=== PATIENT | male | born 1975 | race Caucasian/White ===

== ENCOUNTER 2025-05-08 22:48 | Inpatient (IN) | payer SELFPAY ==
[2025-05-08] VITALS (10 sets, daily range): BP systolic 140–198; BP diastolic 92–103; PULSE 74–84; RESP 16–20; TEMP 36.1; O2SAT 95–99
--- NOTE | ~2025-05-08 | XR_ITS ---
EXAM/PROCEDURE: XR chest 2V - 05/08/2025 23:11 CDT HISTORY: 50 years old Male with cp, sob TECHNIQUE: Two view(s) of the chest. COMPARISON: None available. FINDINGS: LUNGS/ PLEURA: No focal consolidation. Mild perihilar bronchial wall thickening. HEART/ MEDIASTINUM: Heart appears normal in size. BONES: No acute osseous abnormality. OTHER: Visualized upper abdomen is unremarkable. IMPRESSION: No focal consolidation. Mild perihilar bronchial wall thickening, findings suggestive of respiratory bronchiolitis. Reviewed, dictated and finalized at location N. IMPRESSION: No focal consolidation. Mild perihilar bronchial wall thickening, findings sugg estive of respiratory bronchiolitis.
--- NOTE | 2025-05-08 22:49 | ECG_ITS ---
Test Date: 2025-05-08 22:59:57 Measurements Intervals [place] Rate: 77 P: 12 NH: 168 QRS: -29 QRSD: 89 T: 77 QT: 373 QTc: 423 Interpretive Statements SINUS RHYTHM BORDERLINE LEFT AXIS DEVIATION [QRS AXIS < -20] ST & T-WAVE ABNORMALITY, CONSIDER ANTEROLATERAL ISCHEMIA ABNORMAL ECG No previous ECG available for comparison Electronically Signed On 05-09-2025 08:08:49 CDT by Frank Adhikari M.D.
--- NOTE | 2025-05-08 23:09 | ED_ITS ---
HPI - Chest Pain General Chief Complaint: Chest Pain Stated Complaint: chest pain Time Seen by Provider: 05/08/25 22:50 History of Present Illness HPI narrative: This is a 50-year-old male with no significant past medical history presents the ED for chest pain. Patient states that he was having sex with his about an hour and half ago when he had onset of sternal chest pain that radiated to his right shoulder. The pain lasts about an hour before resolving on its own. He has only had this pain 1 other time which was a couple days ago when he was doing some yd work. He did have some mild shortness of breath during the pain. Denies nausea vomiting, diaphoresis. He has not seen a physician in several years. He is not on any medications. He is a nonsmoker and does not drink alcohol regularly. Related Data Allergies Allergy/AdvReac Type Severity Reaction Status Date / Time No Known Allergies Allergy Verified 05/08/25 22:50 Review of Systems 2 Review of Systems: Gen.: Denies fevers or chills Eyes: Denies eye pain or visual change ENT: Denies congestion Respiratory: As per HPI CV: As per HPI GI: Denies abdominal pain nausea, emesis or diarrhea denies burning, urgency, frequency or hematuria Musculoskeletal: Denies back pain or muscle pain Neuro: Denies numbness, tingling, weakness or focal weakness Skin: Denies rash Except as documented, all other systems reviewed and negative Exam 2 Narrative: APPEARANCE: No acute distress, nontoxic, resting in bed EYES: EOMI HEENT: Normocephalic, atraumatic, OMM RESPIRATORY: No respiratory distress Clear to auscultation bilaterally with no rhonchi wheezing or rales. CARDIOVASCULAR: Regular rate and rhythm without murmurs rubs or gallops. ABDOMINAL: Soft, nontender, nondistended, no rebound or guarding MUSCULOSKELETAl: Moves all extremities. No clubbing, cyanosis or edema. NEURO: Awake and alert. Following commands, speech normal, no focal deficits SKIN:: Warm, dry. No rashes lesions or abrasions PSYCHIATRIC: Normal affect/mood, Course Vital Signs Vital signs: Vital Signs Temperature 97.0 F L 05/08/25 22:51 Pulse Rate 80 05/08/25 22:51 Respiratory Rate 17 05/08/25 22:51 Blood Pressure 198/103 H 05/08/25 22:51 Pulse Oximetry 99 05/08/25 22:51 Oxygen Delivery Room Air 05/08/25 22:51 Temperature 97.0 F L 05/08/25 22:51 Pulse Rate 68 05/09/25 01:15 Respiratory Rate 25 H 05/09/25 01:15 Blood Pressure 140/96 H 05/09/25 01:15 Pulse Oximetry 94 05/09/25 01:15 Oxygen Delivery Room Air 05/08/25 22:51 MDM - Chest Pain MDM Narrative Medical decision making narrative: 50-year-old male that presents to the ED for chest pain. On initial evaluation, patient was in no acute distress, afebrile, hemodynamically stable. Heart and lungs clear. Abdomen soft and nontender. He had a mild leukocytosis at 12.7 but no left shift. CMP was without significant abnormalities. Troponin elevated at 0.676. Patient will be given heparin bolus and drip for an NSTEMI. Patient already received 650 mg of aspirin at home so he was not given additional aspirin. He will require admission for further cardiac evaluation. I discussed the case with hospitalist, Dr. Nicholas recommends metoprolol 25 mg now and will admit the patient. Differential Diagnosis Differential diagnosis: Likely stable angina, unstable angina pectoris, atypical chest pain, st elevation myocardial infarction, costochondritis and chest pain Medical Records Data Attestation: I reviewed the patient's medical records. Lab Data Attestation: I reviewed the patient's lab results. 05/08/25 23:02 05/08/25 23:02 Labs: Lab Results 05/08/25 Range/Units 23:02 WBC 12.7 H (4.5-10.0) K/mm3 RBC 5.85 (4.6-6.20) M/mm3 Hgb 16.8 (14.0-18.0) g/dL Hct 48.4 (42.0-52.0) % MCV 82.7 (80-100) fl MCH 28.7 (26-34) pg MCHC 34.7 (32-36) g/dl RDW 12.9 (11.5-14.5) % Plt Count 270 (150-375) k/mm3 MPV 10.3 (7.4-10.4) fl Immature Gran % (Auto) 0.5 (0-0.5) % Neut % (Auto) 68.1 (45.5-73.1) % Lymph % (Auto) 19.7 (18.3-44.2) % [place] % (Auto) 8.8 H (2.6-8.5) % Eos % (Auto) 2.0 (0-4.4) % Baso % (Auto) 0.9 (0.2-1.2) % Lymph # (Auto) 2.50 (0.9-3.2) K/mm3 [place] # (Auto) 1.1 H (0.1-0.6) K/mm3 Eos # (Auto) 0.3 (0-0.3) K/mm3 Baso # (Auto) 0.1 (0.0-0.1) K/mm3 Abs Immat Gran (auto) 0.06 H (0.00-0.031) K/mm3 Absolute Neuts (auto) 8.6 H (1.3-6.7) K/mm3 Absolute Nucleated RBC 0.000 (0.0-0.012) K/mm3 Nucleated RBC % 0.0 (0.0-0.2) % PT 13.8 (11.1-14.7) Seconds INR 1.1 APTT 27.8 (22.3-36.8) Seconds Sodium 137 (137-145) mmol/L Potassium 3.5 (3.4-5.0) mmol/L Chloride 102 (98-107) mmol/L Carbon Dioxide 25 (22-30) mmol/L Anion Gap 10 (4-12) mmol/L BUN 11 (9-20) mg/dL Creatinine 0.93 (0.7-1.3) mg/dL Estim Creat Clear Calc 133 ml/min Estimated GFR > 60 (59 - ) Glucose 124 H (65-110) mg/dL Calcium 9.0 (8.4-10.2) mg/dL Total Bilirubin 0.5 (0.2-1.3) mg/dL AST 40 (17-59) U/L ALT 36 (6-50) U/L Alkaline Phosphatase 100 (38-126) U/L Troponin I 0.676 H* (0.000-0.034) ng/mL Total Protein 8.0 (6.3-8.2) g/dL Albumin 4.6 (3.5-5.1) g/dL Lipase 163 (23-300) U/L Imaging Data Attestation: I personally reviewed and interpreted this imaging study as follows: My impression: Chest x-ray: No focal consolidations. No fractures. Appropriate heart size. No effusions. ECG Data EKG #1: Attestation: I personally reviewed and interpreted this ECG as follows: ECG completion date: 05/08/25 ECG completion time: 22:59 Prior ECG tracings: not available for review Interpretation: Normal sinus rhythm rate of 77, borderline left axis deviation, nonspecific ST changes, no T-wave changes Discharge Plan Discharge Clinical Impression: Acute non-ST elevation myocardial infarction (NSTEMI) Hypertension Qualifiers: Hypertension type: unspecified Qualified Code(s): I10 - Essential (primary) hypertension Obese Qualifiers: Obesity type: unspecified obesity type Obesity classification: adult class 3 (BMI >= 40) Serious obesity comorbidity presence: unspecified whether serious comorbidity present Body mass index: BMI 40.0-44.9 Qualified Code(s): E66.813 - Obesity, class 3; Z68.41 - Body mass index [BMI] 40.0-44.9, adult Patient Disposition: Still a Patient Condition: Stable Patient Language: Cambodian Follow-up/Referrals: PHYSICIAN,SUPERVISOR DECORATING [Primary Care Provider, Internal Medicine]
[2025-05-08 23:10] LABS: Hematocrit 48.4 % (42.0-52.0); Hemoglobin 16.8 g/dL (14.0-18.0); Immature Granulocyte Percent A 0.5 % (0-0.5); Lymphocytes Absolute Auto 2.50 K/mm3 (0.9-3.2); Mean Corpuscular HGB Conc 34.7 g/dl (32-36); Mean Corpuscular Hemoglobin 28.7 pg (26-34); Mean Corpuscular Volume 82.7 fl (80-100); Nucleated Red Blood Cells Absolute Auto 0.000 K/mm3 (0.0-0.012); Nucleated Red Blood Cells Perc 0.0 % (0.0-0.2); Platelet Count Result 270 k/mm3 (150-375); Red Blood Count 5.85 M/mm3 (4.6-6.20); White Blood Count 12.7 K/mm3 (4.5-10.0)
[2025-05-08 23:29] LABS: INR 1.1; Prothrombin Time 13.8 Seconds (11.1-14.7)
[2025-05-08 23:30] LABS: Partial Thromboplastin Time 27.8 Seconds (22.3-36.8)
[2025-05-08 23:38] LABS: Alanine Aminotransferase 36 U/L (6-50); Albumin Level 4.6 g/dL (3.5-5.1); Alkaline Phosphatase 100 U/L (38-126); Anion Gap 10 mmol/L (4-12); Aspartate Amino Transferase 40 U/L (17-59); Bilirubin,Total 0.5 mg/dL (0.2-1.3); Blood Urea Nitrogen 11 mg/dL (9-20); Calcium 9.0 mg/dL (8.4-10.2); Carbon Dioxide 25 mmol/L (22-30); Chloride 102 mmol/L (98-107); Estimated CRCL calculation 133 ml/min; Estimated Glomerular Filt Rate > 60; Glucose 124 mg/dL (65-110); Lipase 163 U/L (23-300); Potassium 3.5 mmol/L (3.4-5.0); Sodium 137 mmol/L (137-145); Total Protein 8.0 g/dL (6.3-8.2); Troponin I 0.676 ng/mL (0.000-0.034)
[2025-05-09] VITALS (49 sets, daily range): BP systolic 129–177; BP diastolic 77–101; PULSE 58–81; RESP 14–25; TEMP 36.4; O2SAT 94–100; BMI 42.8
--- NOTE | 2025-05-09 | ECHO_ITS ---
Patient Info Name: Anjum Gregory Age: 50 years : 1975 Gender: Male Ht: 75 in Wt: 341 lbs BSA: 2.93 m2 HR: 62 bpm BP: 153 / 79 mmHg Heart Rhythm: Sinus Rhythm Technical Quality: Good Exam Date: 05/09/2025 1:35 PM Patient Status: I Admit Date: 05/09/2025 Exam Type: CA echo doppler color flow Complete two-dimensional, color flow and Doppler transthoracic echocardiogram is performed. Staff Referring Physician: Yimi Ashford Mobile Phone Salesperson: Alvarez Yusuf III Attending Provider: Shanell Nicholas DO Summary 1. Complete two-dimensional, color flow and Doppler transthoracic echocardiogram is performed. 2. Left ventricular chamber dimension is normal. 3. Left ventricular systolic function is normal, estimated at 65-70. 4. There is mildly increased left ventricular wall thickness. 5. The left ventricular diastolic function is grade I diastolic dysfunction. 6. There is mild aortic valve calcification. 7. There is mild mitral valve regurgitation. 8. There is mild tricuspid valve regurgitation. 9. The prox ascending aorta size is mildly dilated. Left Ventricle Left ventricular chamber dimension is normal. Left ventricular systolic function is normal, estimated at 65-70. There is mildly increased left ventricular wall thickness. The left ventricular diastolic function is grade I diastolic dysfunction. Right Ventricle Right ventricular chamber dimension is normal. Right ventricular systolic function is normal. Left Atria Left atrial chamber dimension is normal. Right Atria Right atrial chamber dimension is normal. Atrial Septum Intact interatrial septum visualized by color flow imaging. Aortic Valve The aortic valve is trileaflet. There is no aortic valve stenosis. There is trace aortic valve regurgitation. There is mild aortic valve calcification. Pulmonic Valve The pulmonic valve is normal. There is no pulmonic valve stenosis. There is trace pulmonic regurgitation. Mitral Valve The mitral valve has normal leaflets. There is no mitral valve stenosis. There is mild mitral valve regurgitation. Tricuspid Valve The tricuspid valve leaflets are normal. There is no significant tricuspid valve stenosis. There is mild tricuspid valve regurgitation. No pulmonary hypertension, estimated pulmonary arterial systolic pressure is 30 mmHg. Pericardium/Pleural The pericardium appears normal. There is no pericardial effusion. Inferior Vena Cava Normal inferior vena cava with >50% collapse upon inspiration consistent with normal right atrial pressure, 5 mmHg. Aorta The aortic root size at the sinus of Valsalva is normal. The prox ascending aorta size is mildly dilated. Left Ventricular Outflow Tract Name Value Normal LVOT 2D LVOT Diameter 2.4 cm LVOT Doppler LVOT Peak Velocity 133 cm/s LVOT Peak Gradient 7 mmHg LVOT Mean Gradient 4 mmHg LVOT VTI 28 cm LVOT VTI/AV VTI Ratio 0.9 LVOT Stroke Volume 120 ml LVOT CO 23.9 l/min LVOT CI 8.2 l/min/m2 Pulmonic Valve Name Value Normal PV Doppler PV Peak Velocity 131 cm/s PV Peak Gradient 7 mmHg PV Mean Gradient 3 mmHg Mitral Valve Name Value Normal MV Doppler MV Peak Gradient 5 mmHg MV Mean Gradient 2 mmHg MV Area (Cont Eq VTI) 3.8 cm2 MV Diastolic Function MV E Peak Velocity 89 cm/s MV A Peak Velocity 110 cm/s MV E/A 0.8 MV Decel Time (PW) 265 ms MV Annular TDI MV E/e' (Septal) 12.3 MV E/e' (Lateral) 8.8 MV E/e' (Average) 10.6 Tricuspid Valve Name Value Normal Estimated PAP/RSVP RA Pressure 5 mmHg <=5 PA Systolic Pressure 30 mmHg <36 TV Annular TDI TV Lateral Anjelica s' Velocity 24.4 cm/s >=9.5 Aortic Valve Name Value Normal AV Doppler AV Peak Velocity 180 cm/s AV Peak Gradient 13 mmHg AV Mean Gradient 6 mmHg AV VTI 30 cm AV Area (Cont Eq VTI) 4.1 cm2 >=3.0 AV Area (Cont Eq Jeffery) 3.2 cm2 AV DI (Jeffery) 0.74 AV Regurgitation 2D LVOT Area 4.4 cm2 Ventricles Name Value Normal LV Dimensions 2D/MM IVS Diastolic Thickness (2D) 1.4 cm 0.6-1.0 LVID Diastole (2D) 5.1 cm 4.2-5.8 LVIW Diastolic Thickness (2D) 1.1 cm 0.6-1.0 LVID Systole (2D) 3.6 cm 2.5-4.0 LVOT Diameter 2.4 cm LV Mass (2D Cubed) 254.91 g 88.00-224.00 LV Mass Index (2D Cubed) 87 g/m2 49-115 Relative Wall Thickness (2D) 0.45 <=0.42 LV Fractional Shortening/Ejection Fraction 2D/MM LV Fractional Shortening (2D) 29 % 25-43 LV EF (2D Teichholz) 55 % LV Diastolic Volume (4C MOD) 135 ml LV EF (4C MOD) 59 % LV Diastolic Length (4C) 9.3 cm LV Systolic Length (4C) 8.1 cm LV Stroke Volume (4C MOD) 80 ml Atria Name Value Normal LA Dimensions LA Volume (4C A-L) 63 ml LA Volume (BP A-L) 67 ml RA Dimensions RA Systolic Major Brewster Length (4C) 5.9 cm 2.1-2.7 RA Area (4C) 19.5 cm2 <=18.0 Report Signatures
[2025-05-09] MEDS: HEPARIN SOD/D5W 100 UNITS/ML 25,000 UNITS/250 ML BAG 10 UNITS IV CONT (00:18)
[2025-05-09] MEDS: METOPROLOL TARTRATE 25 MG TABLET PO (01:06)
--- NOTE | 2025-05-09 02:42 | ECG_ITS ---
Test Date: 2025-05-09 02:47:22 Measurements Intervals [place] Rate: 56 P: 7 [place]: 164 QRS: -15 QRSD: 85 T: 71 QT: 430 QTc: 416 Interpretive Statements SINUS BRADYCARDIA NONSPECIFIC T-WAVE ABNORMALITY ABNORMAL ECG Compared to ECG 05/08/2025 22:59:57 Sinus rhythm no longer present Possible ischemia no longer present T-wave abnormality still present Electronically Signed On 05-09-2025 08:09:09 CDT by Frank Adhikari M.D.
[2025-05-09 03:14] LABS: Troponin I 0.972 ng/mL (0.000-0.034)
--- NOTE | 2025-05-09 03:39 | ADMGEN ---
This patient, Anjum Gregory, was admitted to IMU Room 202-01. Patient/family oriented to hospital policies and general routines including ID bracelet, bed and alarms, visiting hours, pain management, procedures, bathroom and other care routines, personal items, smoking policy, room service/diet, and visiting hours. Information on how to activate the Rapid Response Team has been discussed. Patient/Family are encouraged to report perceived risks to care and to ask questions if they do not understand what they are told or what they should do.
[2025-05-09] MEDS: NITROGLYCERIN OINTMENT 1 INCH DOSE TRANSDERM (03:40)
--- NOTE | 2025-05-09 03:52 | P.HP_ITS ---
H&P: HPI History of Present Illness Date/Time: 05/09/25 03:52 Chief Complaint: Chest pain Narrative: Will 50-year-old male with a medical history of obesity who has not seen a physician in 12 years who presented to the ER via private vehicle with chest pain. Patient reported that he started having chest pressure in the center of her chest that initially was nonradiating on the . The pain occurred again later in the day. The pain felt as if something was sitting on his chest and was initially moderate and lasted about 5 minutes each time. It recurred later in the same day when he started moving about again. Her he did not have the pain again in till around 930 on the when he and his for having intercourse. The pain was much worse this time 10/10 intensity and then started radiating down his right arm. He took 2 tablet the 325 aspirin at home. It was accompanied by some mild shortness of breath. It was so severe and lasted about 1.5 hours the weight decided come to the ER. He denied any associated lightheadedness, palpitations. On arrival to the ER patient's blood pressures were elevated to 198/103. However the improved to 150 4/92 without intervention. He denies a prior known history of hypertension. He used to get a electronic health screening through his insurance year yearly for about 8 years with his last screening about 2021. At those times his blood pressure and cholesterol reportedly normal. He does not check his blood pressures at home. He has not had any labs obtained since that time. His does report the patient snores quite loudly and she suspects he has obstructive sleep apnea but patient refuses to consider a sleep study. He reports that he is still having brief episodes of chest pressure since he arrived to the IMU but the episodes only last for minutes or so before resolving and her mild compared to his prior pain. He is a lifelong nonsmoker. A does not have any family history of premature coronary artery disease. His father had a pacemaker placed recently but his father's 83 years old. Review of Systems 2 Review of Systems: 12 systems were reviewed with pertinent positives and negatives per HPI. Except as documented in the HPI, all other systems were reviewed and are negative. Chronic swelling of the right lower extremity for many years in the same leg that he has chronic psoriasis plaque [facility] Past Medical History Medical History (Updated 05/09/25 @ 04:36 by Shanell Nicholas DO) Psoriasis Obesity, Class III, BMI 40-49.9 (morbid obesity) Surgical History Surgical History (Updated 05/09/25 @ 04:29 by Shanell Nicholas DO) History of appendectomy Family History Family History (Updated 05/09/25 @ 04:30 by Shanell Nicholas DO) Father Status post placement of cardiac pacemaker, Onset Age: 85 Social History Social History (Updated 05/09/25 @ 04:32 by Shanell Nicholas DO) Social History: The patient lives at home with his of 25 years. He has 1 child from a prior marriage is 31 years old. Their mutual children are ages 25, 18, 13, 12 and 9. 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 He is a lifelong nonsmoker and does not drink. He denies illicit substance use. Code status: Full code Surrogate decision maker: Asya () Smoking status: Never smoker Alcohol intake: former Substance use: never Lack of Transportation: No Lack of Food: Never True Current Housing: I Have Housing Concerned About Future Housing: No Difficulty Paying Gas/Electric Bills: No Difficulty Paying for Meds: No Currently Unemployed: No Education: Bachelor's Degree Difficulty w/ Childcare or Family Care: No Spiritual care concerns: No Meds Home Medications and Allergies Allergies Allergy/AdvReac Type Severity Reaction Status Date / Time No Known Allergies Allergy Verified 05/08/25 22:50 Vital Signs Vital Signs - 24 hr 05/08/25 22:51 05/08/25 22:59 05/08/25 23:00 Temperature 97.0 F L Pulse Rate 80 80 Respiratory Rate 17 Blood Pressure 198/103 H Pulse Oximetry 99 97 Oxygen Delivery Room Air 05/08/25 23:00 05/08/25 23:07 05/08/25 23:19 Temperature Pulse Rate 76 Respiratory Rate 19 Blood Pressure 154/92 H Pulse Oximetry 96 95 96 Oxygen Delivery 05/08/25 23:26 05/08/25 23:30 05/08/25 23:31 Temperature Pulse Rate 74 84 78 Respiratory Rate 20 16 19 Blood Pressure 157/99 H 140/102 H Pulse Oximetry 95 95 98 Oxygen Delivery 05/08/25 23:44 05/08/25 23:45 05/09/25 00:00 Temperature Pulse Rate 75 75 70 Respiratory Rate 17 20 15 Blood Pressure 144/103 H Pulse Oximetry 95 96 97 Oxygen Delivery 05/09/25 00:01 05/09/25 00:15 05/09/25 00:30 Temperature Pulse Rate 74 81 72 Respiratory Rate 22 H 17 18 Blood Pressure 147/90 H Pulse Oximetry 95 96 94 Oxygen Delivery 05/09/25 00:31 05/09/25 00:45 05/09/25 01:00 Temperature Pulse Rate 71 74 71 Respiratory Rate 18 16 18 Blood Pressure 150/96 H Pulse Oximetry 95 97 96 Oxygen Delivery 05/09/25 01:01 05/09/25 01:02 05/09/25 01:06 Temperature Pulse Rate 71 69 69 Respiratory Rate 25 H 18 Blood Pressure 140/96 H Pulse Oximetry 96 94 Oxygen Delivery 05/09/25 01:15 05/09/25 01:30 05/09/25 01:31 Temperature Pulse Rate 68 63 68 Respiratory Rate 25 H 14 16 Blood Pressure 140/96 H 143/95 H Pulse Oximetry 94 96 96 Oxygen Delivery 05/09/25 01:45 05/09/25 02:00 05/09/25 02:01 Temperature Pulse Rate 63 60 62 Respiratory Rate 15 23 H Blood Pressure 140/90 Pulse Oximetry 99 96 95 Oxygen Delivery 05/09/25 02:15 05/09/25 02:30 05/09/25 02:31 Temperature Pulse Rate 60 58 L 59 L Respiratory Rate 20 18 20 Blood Pressure 132/91 H Pulse Oximetry 94 95 96 Oxygen Delivery 05/09/25 02:32 05/09/25 02:37 05/09/25 03:39 Temperature 97.5 F L Pulse Rate 65 59 L 60 Respiratory Rate 23 H 16 16 Blood Pressure 132/91 H 129/83 Pulse Oximetry 99 98 97 Oxygen Delivery Exam 2 Narrative: Weight 155.4 kg BMI 42.8 Const: Other: Morbidly obese, no acute distress, appears stated age HENMT: Other: Mucous membranes are tacky, no oral pharyngeal erythema, crowded posterior oropharynx Eyes: Other: Pupils are equal and reactive, no scleral icterus Neck: Other: No JVD, no lymphadenopathy, large neck circumference Resp: Other: Clear to auscultation bilaterally, no increased work of breathing Cardio: Other: Regular rate, regular rhythm, 2+ bilateral radial pedal pulses GI: Other: Soft, obese, nontender, normoactive bowel sounds Skin: Other: Patient has chronic scarring and areas of thickened purple plaques posterior right ankle (psoriasis) otherwise No jaundice, no pallor Neuro: Other: Alert oriented x4, speech is clear, no facial asymmetry Extrem: Other: No clubbing, no cyanosis, nonpitting edema to the right lower extremity (chronic and ongoing for many years) Psych: Other: Appropriate mood and affect, pleasant and cooperative, judgment insight intact H&P: Results Labs Labs: Laboratory Tests 05/08/25 23:02 05/08/25 23:02 05/08/25 05/09/25 23:02 02:43 WBC 12.7 H RBC 5.85 Hgb 16.8 Hct 48.4 MCV 82.7 MCH 28.7 MCHC 34.7 RDW 12.9 Plt Count 270 MPV 10.3 Immature Gran % (Auto) 0.5 Neut % (Auto) 68.1 Lymph % (Auto) 19.7 [place] % (Auto) 8.8 H Eos % (Auto) 2.0 Baso % (Auto) 0.9 Lymph # (Auto) 2.50 [place] # (Auto) 1.1 H Eos # (Auto) 0.3 Baso # (Auto) 0.1 Abs Immat Gran (auto) 0.06 H Absolute Neuts (auto) 8.6 H Absolute Nucleated RBC 0.000 Nucleated RBC % 0.0 PT 13.8 INR 1.1 APTT 27.8 Sodium 137 Potassium 3.5 Chloride 102 Carbon Dioxide 25 Anion Gap 10 BUN 11 Creatinine 0.93 Estim Creat Clear Calc 133 Estimated GFR > 60 Glucose 124 H Calcium 9.0 Total Bilirubin 0.5 AST 40 ALT 36 Alkaline Phosphatase 100 Troponin I 0.676 H* 0.972 H* D Total Protein 8.0 Albumin 4.6 Lipase 163 Chest x-ray PA and lateral: Personally reviewed interpreted demonstrated no acute cardiopulmonary process EKGs reviewed and interpreted: 1. Sinus rhythm rate [address] T- wave abnormality in multiple leads. With minimal elevation in AVR and minimal depression with T-wave abnormality in lead 1 to and lateral leads. 2. EKG sinus bradycardia rate 56 with improved appearance cardiology interpretation pending Assessment and Plan Assessment and plan (1) Acute non-ST elevation myocardial infarction (NSTEMI): Code(s): I21.4 - Non-ST elevation (NSTEMI) myocardial infarction Status: Acute (2) Hypertension: Qualifiers: Hypertension type: unspecified Qualified Code(s): I10 - Essential (primary) hypertension Code(s): I10 - Essential (primary) hypertension Status: Acute (3) Obesity, Class III, BMI 40-49.9 (morbid obesity): Code(s): E66.813 - Obesity, class 3 Status: Acute Plan Patient presents with chest pain and found to have non STEMI. Patient is on heparin drip per protocol. He received aspirin at home. Will start patient on 81 mg aspirin daily. Will check fasting lipid panel with next set of troponins. Troponins are still trending upward. Patient reports continued intermittent pain but EKG stable. Will consult Cardiology. NPO for possible cardiac catheterization. Patient's blood pressures have improved significantly. Will start patient on 25 mg metoprolol succinate daily. Patient does have class 3 obesity and his reports significant snoring and suspected obstructive sleep apnea. Will order ApneaLink. MEDICAL DECISION MAKING NARRATIVE -Spoke with the ED provider in detail regarding patient's evaluation, workup and management -Patient seen and examined at bedside -Collaborated with patient's nurse at the bedside in detail and addressed all concerns -Labs, electrolytes, radiology, investigations and test results personally reviewed and interpreted unless otherwise specified -ED/Consult/Nursing/Ancilliary notes on the chart reviewed and appreciated -Spoke with patient and his at bedside and diagnosis and plan of care was discussed. All questions answered. The patient gave consent to discuss his medical care with his at bedside. Quality VTE Prophylaxis VTE prophylaxis: pharmacologic ordered (Heparin drip per protocol) Hospitalist MIPS Advance Care Plan I have confirmed that the patient's Advanced Care Plan is present, code status is documented, or surrogate decision maker is listed in patient medical record.: Yes Medication Reconciliation I have utilized all available resources to obtain, update and review the patients current medications (includes all prescriptions, OTC, herbals, cannabis, and nutritional supplements).: Yes
[2025-05-09 06:44] LABS: Hematocrit 44.2 % (42.0-52.0); Hemoglobin 15.2 g/dL (14.0-18.0); Immature Granulocyte Percent A 0.5 % (0-0.5); Lymphocytes Absolute Auto 2.11 K/mm3 (0.9-3.2); Mean Corpuscular HGB Conc 34.4 g/dl (32-36); Mean Corpuscular Hemoglobin 29.2 pg (26-34); Mean Corpuscular Volume 85.0 fl (80-100); Nucleated Red Blood Cells Absolute Auto 0.000 K/mm3 (0.0-0.012); Nucleated Red Blood Cells Perc 0.0 % (0.0-0.2); Platelet Count Result 207 k/mm3 (150-375); Red Blood Count 5.20 M/mm3 (4.6-6.20); White Blood Count 8.2 K/mm3 (4.5-10.0)
[2025-05-09 06:52] LABS: Partial Thromboplastin Time 27.2 Seconds (22.3-36.8)
[2025-05-09 06:54] LABS: Cholesterol 192 mg/dL (0-200); HDL Direct 41 mg/dL; Triglycerides 188 mg/dL (<150)
[2025-05-09 07:08] LABS: Troponin I 1.110 ng/mL (0.000-0.034)
--- NOTE | 2025-05-09 08:14 | PM.CNCAR ---
Assessment and Plan Assessment and plan (1) Acute non-ST elevation myocardial infarction (NSTEMI): Code(s): I21.4 - Non-ST elevation (NSTEMI) myocardial infarction Status: Acute (2) Hypertensive urgency: Code(s): I16.0 - Hypertensive urgency Status: Acute Plan Diagnosis: NSTEMI Sinus bradycardia-asymptomatic Hypertensive urgency Obesity Plan: Troponin is up trending and patient continues to have off and on chest pain. Recommend cardiac catheterization to further evaluate coronaries and possible percutaneous coronary intervention. Risks and benefits discussed with patient and he is willing to proceed. Continue to keep NPO Continue heparin drip Continue Aspirin 81 mg daily Add Atorvastatin 40 mg daily Not adding beta-jonathan given heart rate is in the 50s to 60s at baseline Sublingual nitro p.r.n. for chest pain Trend troponin to peak EKG p.r.n. for chest pain TTE Good risk factor control including blood pressure with target less than 120/80, lipids History of Present Illness History of Present Illness Consult date/time: 05/09/25 08:14 Reason For Visit: NSTEMI Narrative: 50-year-old male with no significant past medical history presents with chief complaints of chest pain that started on Thursday. Patient reports 2 episodes of pressure-like left-sided chest pain that started after he moved some boxes up the stairs on Thursday. Pain radiated to his right shoulder and arm. Each episode lasted about 30 minutes and resolved with rest without any intervention. He then had recurrence of similar left-sided chest pain yesterday night at about 9:00 p.m with radiation to right arm. It was of intensity 11/10. Pain lasted for 1-1/2 are sent patient decided to present to the ER. In the ER pain decreased to an intensity of 3/10 with aspirin. However it did not completely resolve until later. He has not had recurrence of chest pain since then. Chest pain was associated with some shortness of breath. Patient has no personal or family history of premature CAD. He does not smoke or drink alcohol. He has not had similar symptoms in the past. No diaphoresis, palpitations, dizziness, lightheadedness, presyncope, syncope, recent weight gain, leg swelling. Blood pressure was noted to be elevated with SBP in the 190s at the time of presentation. Troponin was noted to be elevated and is rising. First EKG showed sinus rhythm with ST depressions in anterolateral leads suggestive of ischemia and ST elevation in AVR. Repeat EKG showed sinus bradycardia with nonspecific T-wave change. Workup: Hemoglobin: 15.2 Creatinine: 0.93 Troponin: 0.676, 0.972, 1.110 EKG: Sinus rhythm, anterolateral ST depression suggestive of ischemia, ST elevation in AVR Repeat EKG: Sinus bradycardia, nonspecific T-wave changes Chest x-ray: IMPRESSION: No focal consolidation. Mild perihilar bronchial wall thickening, findings suggestive of respiratory bronchiolitis. Review of Systems Review of Systems: Complete review of systems was performed and negative other than those mentioned in HPI. [facility] Past Medical History Medical History (Updated 05/09/25 @ 08:18 by Wendy Yeager MD) Psoriasis Obesity, Class III, BMI 40-49.9 (morbid obesity) Surgical History Surgical History (Updated 05/09/25 @ 04:29 by Shanell Nicholas DO) History of appendectomy Family History Family History (Updated 05/09/25 @ 04:30 by Shanell Nicholas DO) Father Status post placement of cardiac pacemaker, Onset Age: 85 Social History Social History (Updated 05/09/25 @ 04:32 by Shanell Nicholas DO) Social History: The patient lives at home with his of 25 years. He has 1 child from a prior marriage is 31 years old. Their mutual children are ages 25, 18, 13, 12 and 9. 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 He is a lifelong nonsmoker and does not drink. He denies illicit substance use. Code status: Full code Surrogate decision maker: Asya () Smoking status: Never smoker Alcohol intake: former Substance use: never Lack of Transportation: No Lack of Food: Never True Current Housing: I Have Housing Concerned About Future Housing: No Difficulty Paying Gas/Electric Bills: No Difficulty Paying for Meds: No Currently Unemployed: No Education: Bachelor's Degree Difficulty w/ Childcare or Family Care: No Spiritual care concerns: No Meds Home Medications and Allergies Home Medications ?Medication ?Instructions ?Recorded ?Confirmed ?Type No Home Medications 05/09/25 05/09/25 History Allergies Allergy/AdvReac Type Severity Reaction Status Date / Time No Known Allergies Allergy Verified 05/08/25 22:50 Vital Signs Vital Signs - 24 hr 05/08/25 22:51 05/08/25 22:59 05/08/25 23:00 Temperature 36.1 C L Pulse Rate 80 80 Respiratory Rate 17 Blood Pressure 198/103 H Pulse Oximetry 99 97 Oxygen Delivery Room Air 05/08/25 23:00 05/08/25 23:07 05/08/25 23:19 Temperature Pulse Rate 76 Respiratory Rate 19 Blood Pressure 154/92 H Pulse Oximetry 96 95 96 Oxygen Delivery 05/08/25 23:26 05/08/25 23:30 05/08/25 23:31 Temperature Pulse Rate 74 84 78 Respiratory Rate 20 16 19 Blood Pressure 157/99 H 140/102 H Pulse Oximetry 95 95 98 Oxygen Delivery 05/08/25 23:44 05/08/25 23:45 05/09/25 00:00 Temperature Pulse Rate 75 75 70 Respiratory Rate 17 20 15 Blood Pressure 144/103 H Pulse Oximetry 95 96 97 Oxygen Delivery 05/09/25 00:01 05/09/25 00:15 05/09/25 00:30 Temperature Pulse Rate 74 81 72 Respiratory Rate 22 H 17 18 Blood Pressure 147/90 H Pulse Oximetry 95 96 94 Oxygen Delivery 05/09/25 00:31 05/09/25 00:45 05/09/25 01:00 Temperature Pulse Rate 71 74 71 Respiratory Rate 18 16 18 Blood Pressure 150/96 H Pulse Oximetry 95 97 96 Oxygen Delivery 05/09/25 01:01 05/09/25 01:02 05/09/25 01:06 Temperature Pulse Rate 71 69 69 Respiratory Rate 25 H 18 Blood Pressure 140/96 H Pulse Oximetry 96 94 Oxygen Delivery 05/09/25 01:15 05/09/25 01:30 05/09/25 01:31 Temperature Pulse Rate 68 63 68 Respiratory Rate 25 H 14 16 Blood Pressure 140/96 H 143/95 H Pulse Oximetry 94 96 96 Oxygen Delivery 05/09/25 01:45 05/09/25 02:00 05/09/25 02:01 Temperature Pulse Rate 63 60 62 Respiratory Rate 15 23 H Blood Pressure 140/90 Pulse Oximetry 99 96 95 Oxygen Delivery 05/09/25 02:15 05/09/25 02:30 05/09/25 02:31 Temperature Pulse Rate 60 58 L 59 L Respiratory Rate 20 18 20 Blood Pressure 132/91 H Pulse Oximetry 94 95 96 Oxygen Delivery 05/09/25 02:32 05/09/25 02:37 05/09/25 03:39 Temperature 36.4 C L Pulse Rate 65 59 L 60 Respiratory Rate 23 H 16 16 Blood Pressure 132/91 H 129/83 Pulse Oximetry 99 98 97 Oxygen Delivery 05/09/25 04:00 05/09/25 04:00 05/09/25 05:51 Temperature Pulse Rate 58 L 60 60 Respiratory Rate 16 Blood Pressure Pulse Oximetry 97 Oxygen Delivery Room Air 05/09/25 07:43 Temperature 36.4 C L Pulse Rate 62 Respiratory Rate 20 Blood Pressure 153/79 H Pulse Oximetry 97 Oxygen Delivery Exam Narrative: General: Alert oriented x3, no acute distress Neck: Supple, no JVD Chest: Bilaterally clear to auscultation, no rales or rhonchi Cardiac: S1, S2 +, regular rate, regular rhythm, no murmurs or rubs Extremities: No pedal edema, no skin rash Neurologic: Alert and oriented x3, no focal neurological deficits Results Labs and Meds 05/09/25 06:36 05/08/25 23:02 Lab results: Cardiac Enzymes 05/08/25 05/09/25 05/09/25 Range/Units 23:02 02:43 06:36 AST 40 (17-59) U/L Troponin I 0.676 H* 0.972 H* D Cancelled (0.000-0.034) ng/mL 05/09/25 Range/Units 06:36 AST (17-59) U/L Troponin I 1.110 H* (0.000-0.034) ng/mL Coagulation 05/08/25 05/09/25 Range/Units 23:02 06:36 PT 13.8 (11.1-14.7) Seconds APTT 27.8 27.2 (22.3-36.8) Seconds Lipids 05/09/25 Range/Units 06:36 Triglycerides 188 H (<150) mg/dL Cholesterol 192 (0-200) mg/dL CBC 05/08/25 05/09/25 Range/Units 23:02 06:36 WBC 12.7 H 8.2 (4.5-10.0) K/mm3 RBC 5.85 5.20 (4.6-6.20) M/mm3 Hgb 16.8 15.2 (14.0-18.0) g/dL Hct 48.4 44.2 (42.0-52.0) % Plt Count 270 207 (150-375) k/mm3 Lymph # (Auto) 2.50 2.11 (0.9-3.2) K/mm3 [place] # (Auto) 1.1 H 0.7 H (0.1-0.6) K/mm3 Eos # (Auto) 0.3 0.2 (0-0.3) K/mm3 Baso # (Auto) 0.1 0.1 (0.0-0.1) K/mm3 Comprehensive Metabolic Panel 05/08/25 Range/Units 23:02 Sodium 137 (137-145) mmol/L Potassium 3.5 (3.4-5.0) mmol/L Chloride 102 (98-107) mmol/L Carbon Dioxide 25 (22-30) mmol/L BUN 11 (9-20) mg/dL Creatinine 0.93 (0.7-1.3) mg/dL Glucose 124 H (65-110) mg/dL Calcium 9.0 (8.4-10.2) mg/dL AST 40 (17-59) U/L ALT 36 (6-50) U/L Alkaline Phosphatase 100 (38-126) U/L Total Protein 8.0 (6.3-8.2) g/dL Albumin 4.6 (3.5-5.1) g/dL Intake and Output 05/08/25 05/09/25 05/09/25 23:59 07:59 15:59 Intake Total 73.7 Balance 73.7 Intake: IV 73.7 Heparin Sod/D5w 100 Units/ml 25 73.7 ,000 units In 250 ml @ 1,000 UNITS/HR 10 mls/hr IV CONT . Q24H [facility] Rx#:[id number] Other: # Unmeasured Voids 1 Patient Weight 05/09/25 23:59 Weight 154.7 kg
--- NOTE | 2025-05-09 08:43 | P.SEDATION_ITS ---
Moderate Sedation Note-Pt Data Patient Data Allergies Allergy/AdvReac Type Severity Reaction Status Date / Time No Known Allergies Allergy Verified 05/08/25 22:50 Home Medications ?Medication ?Instructions ?Recorded ?Confirmed ?Type No Home Medications 05/09/25 05/09/25 H istory Current Medications: Active Medications Aspirin (Aspirin 81 Mg Enteric Tablet) 81 mg PO QAM [facility] Atorvastatin Calcium (Atorvastatin 40 Mg Tablet) 40 mg PO DAILY [facility] Heparin Sodium (Porcine) (Heparin Sodium 5,000 Units/Ml Vial) 4,000 units IV PUSH PRN PRN PRN Reason: aPTT less than 55 seconds Last Admin: 05/09/25 07:41 Dose: 4,000 units Heparin Sodium (Porcine) (Heparin Sodium 5,000 Units/Ml Vial) 4,000 units IV PUSH PRN PRN PRN Reason: aPTT 55 - 70 seconds Heparin Sodium/Dextrose (Heparin Sodium/D5w 100 Units/Ml) 25,000 units in 250 mls @ 15 mls/hr IV CONT .[id number] [facility]; Protocol Last Titration: 05/09/25 07:40 Dose: 1,500 units/hr, 15 mls/hr Nitroglycerin (Nitroglycerin Sl 0.4 Mg Tablet) 0.4 mg SUBLINGUAL Q5MIN PRN PRN Reason: Chest Pain Nitroglycerin (Nitroglycerin Ointment 1 Inch Dose) 1 inch TRANSDERM Q6HR [facility]ERSON Last Admin: 05/09/25 03:40 Dose: 1 inch Perflutren Lipid Microsphere (Perflutren Lipid Microspheres 1.5 Ml Vial Diluted To 10 Ml Total Volume) 0 ml IV PUSH ONCE PRN; Protocol PRN Reason: adequate visualization Stop: 05/12/25 08:42 Sedation/Anesthesia: No previous sedation/anesthesia problems (including family history). [facility] Past Medical History Medical History (Updated 05/09/25 @ 08:18 by Wendy Yeager MD) Psoriasis Obesity, Class III, BMI 40-49.9 (morbid obesity) Surgical History Surgical History (Updated 05/09/25 @ 04:29 by Shanell Nicholas DO) History of appendectomy Family History Family History (Updated 05/09/25 @ 04:30 by Shanell Nicholas DO) Father Status post placement of cardiac pacemaker, Onset Age: 85 Social History Social History (Updated 05/09/25 @ 04:32 by BENNY Monae Social History: The patient lives at home with his of 25 years. He has 1 child from a prior marriage is 31 years old. Their mutual children are ages 25, 18, 13, 12 and 9. 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 He is a lifelong nonsmoker and does not drink. He denies illicit substance use. Code status: Full code Surrogate decision maker: Asya () Smoking status: Never smoker Alcohol intake: former Substance use: never Lack of Transportation: No Lack of Food: Never True Current Housing: I Have Housing Concerned About Future Housing: No Difficulty Paying Gas/Electric Bills: No Difficulty Paying for Meds: No Currently Unemployed: No Education: Bachelor's Degree Difficulty w/ Childcare or Family Care: No Spiritual care concerns: No Mod Sed Physical Exam Physical Exam Pre Procedural Exam: Normal: Lungs, Heart Size, Heart Rate and Heart Rhythm Hours since solid foods: 12 Hours since liquid intake: 12 Mallampati Classification: class II Internal Medicine - PN: Obj Da Vital Signs Vital Signs: Vital Signs - 24 hr 05/08/25 22:51 05/08/25 22:59 05/08/25 23:00 Temperature 36.1 C L Pulse Rate 80 80 Respiratory Rate 17 Blood Pressure 198/103 H Pulse Oximetry 99 97 Oxygen Delivery Room Air 05/08/25 23:00 05/08/25 23:07 05/08/25 23:19 Temperature Pulse Rate 76 Respiratory Rate 19 Blood Pressure 154/92 H Pulse Oximetry 96 95 96 Oxygen Delivery 05/08/25 23:26 05/08/25 23:30 05/08/25 23:31 Temperature Pulse Rate 74 84 78 Respiratory Rate 20 16 19 Blood Pressure 157/99 H 140/102 H Pulse Oximetry 95 95 98 Oxygen Delivery 05/08/25 23:44 05/08/25 23:45 05/09/25 00:00 Temperature Pulse Rate 75 75 70 Respiratory Rate 17 20 15 Blood Pressure 144/103 H Pulse Oximetry 95 96 97 Oxygen Delivery 05/09/25 00:01 05/09/25 00:15 05/09/25 00:30 Temperature Pulse Rate 74 81 72 Respiratory Rate 22 H 17 18 Blood Pressure 147/90 H Pulse Oximetry 95 96 94 Oxygen Delivery 05/09/25 00:31 05/09/25 00:45 05/09/25 01:00 Temperature Pulse Rate 71 74 71 Respiratory Rate 18 16 18 Blood Pressure 150/96 H Pulse Oximetry 95 97 96 Oxygen Delivery 05/09/25 01:01 05/09/25 01:02 05/09/25 01:06 Temperature Pulse Rate 71 69 69 Respiratory Rate 25 H 18 Blood Pressure 140/96 H Pulse Oximetry 96 94 Oxygen Delivery 05/09/25 01:15 05/09/25 01:30 05/09/25 01:31 Temperature Pulse Rate 68 63 68 Respiratory Rate 25 H 14 16 Blood Pressure 140/96 H 143/95 H Pulse Oximetry 94 96 96 Oxygen Delivery 05/09/25 01:45 05/09/25 02:00 05/09/25 02:01 Temperature Pulse Rate 63 60 62 Respiratory Rate 15 23 H Blood Pressure 140/90 Pulse Oximetry 99 96 95 Oxygen Delivery 05/09/25 02:15 05/09/25 02:30 05/09/25 02:31 Temperature Pulse Rate 60 58 L 59 L Respiratory Rate 20 18 20 Blood Pressure 132/91 H Pulse Oximetry 94 95 96 Oxygen Delivery 05/09/25 02:32 05/09/25 02:37 05/09/25 03:39 Temperature 36.4 C L Pulse Rate 65 59 L 60 Respiratory Rate 23 H 16 16 Blood Pressure 132/91 H 129/83 Pulse Oximetry 99 98 97 Oxygen Delivery 05/09/25 04:00 05/09/25 04:00 05/09/25 05:51 Temperature Pulse Rate 58 L 60 60 Respiratory Rate 16 Blood Pressure Pulse Oximetry 97 Oxygen Delivery Room Air 05/09/25 07:43 Temperature 36.4 C L Pulse Rate 62 Respiratory Rate 20 Blood Pressure 153/79 H Pulse Oximetry 97 Oxygen Delivery Intake/Output Intake/Output: Intake & Output 05/06/25 05/07/25 05/08/25 05/09/25 23:59 23:59 23:59 23:59 Intake Total 73.7 Balance 73.7 Meds/Results Medications: Active Medications Generic Name Dose Route Start Last Admin Trade Name Freq PRN Reason Stop Dose Admin Aspirin 81 mg 05/09/25 09:00 Aspirin 81 Mg Enteric Tablet PO QAM [facility] Atorvastatin Calcium 40 mg 05/09/25 09:00 Atorvastatin 40 Mg Tablet PO DAILY [facility] Heparin Sodium (Porcine) 4,000 units 05/08/25 23:42 05/09/25 07:41 Heparin Sodium 5,000 Units/Ml Vial IV PUSH 4,000 units PRN PRN Administration aPTT less than 55 seconds Heparin Sodium (Porcine) 4,000 units 05/08/25 23:42 Heparin Sodium 5,000 Units/Ml Vial IV PUSH PRN PRN aPTT 55 - 70 seconds Heparin Sodium/Dextrose 25,000 units in 250 mls @ 15 mls/hr 05/08/25 23:45 05/09/25 07:40 Heparin Sodium/D5w 100 Units/Ml IV CONT 1,500 units/hr .[id number] [facility]ERSON 15 mls/hr Protocol Titration 1,500 UNITS/HR Nitroglycerin 0.4 mg 05/09/25 01:09 Nitroglycerin Sl 0.4 Mg Tablet SUBLINGUAL Q5MIN PRN Chest Pain Nitroglycerin 1 inch 05/09/25 06:00 05/09/25 03:40 Nitroglycerin Ointment 1 Inch Dose TRANSDERM 1 inch Q6HR [facility]ERSON Administration Perflutren Lipid Microsphere 0 ml 05/09/25 08:42 Perflutren Lipid Microspheres 1.5 Ml Vial Diluted To 10 Ml Total Volume IV PUSH 05/12/25 08:42 ONCE PRN adequate visualization Protocol Radiology Results: ITS Impressions Chest X-Ray 05/09/25 07:50 IMPRESSION: No focal consolidation. Mild perihilar bronchial wall thickening, findings suggestive of respiratory bronchiolitis. Labs 05/09/25 06:36 05/08/25 23:02 Labs: Laboratory Results - last 24 hr 05/08/25 05/09/25 05/09/25 23:02 02:43 06:36 WBC 12.7 H 8.2 RBC 5.85 5.20 Hgb 16.8 15.2 Hct 48.4 44.2 MCV 82.7 85.0 MCH 28.7 29.2 MCHC 34.7 34.4 RDW 12.9 13.1 Plt Count 270 207 MPV 10.3 10.5 H Immature Gran % (Auto) 0.5 0.5 Neut % (Auto) 68.1 61.8 Lymph % (Auto) 19.7 25.8 [place] % (Auto) 8.8 H 8.8 H Eos % (Auto) 2.0 2.2 Baso % (Auto) 0.9 0.9 Lymph # (Auto) 2.50 2.11 [place] # (Auto) 1.1 H 0.7 H Eos # (Auto) 0.3 0.2 Baso # (Auto) 0.1 0.1 Abs Immat Gran (auto) 0.06 H 0.04 H Absolute Neuts (auto) 8.6 H 5.1 Absolute Nucleated RBC 0.000 0.000 Nucleated RBC % 0.0 0.0 PT 13.8 INR 1.1 APTT 27.8 27.2 Sodium 137 Potassium 3.5 Chloride 102 Carbon Dioxide 25 Anion Gap 10 BUN 11 Creatinine 0.93 Estim Creat Clear Calc 133 Estimated GFR > 60 Glucose 124 H Calcium 9.0 Total Bilirubin 0.5 AST 40 ALT 36 Alkaline Phosphatase 100 Troponin I 0.676 H* 0.972 H* D Cancelled Total Protein 8.0 Albumin 4.6 Triglycerides Cholesterol LDL Cholesterol Direct HDL Direct Lipase 163 05/09/25 06:36 WBC RBC Hgb Hct MCV MCH MCHC RDW Plt Count MPV Immature Gran % (Auto) Neut % (Auto) Lymph % (Auto) [place] % (Auto) Eos % (Auto) Baso % (Auto) Lymph # (Auto) [place] # (Auto) Eos # (Auto) Baso # (Auto) Abs Immat Gran (auto) Absolute Neuts (auto) Absolute Nucleated RBC Nucleated RBC % PT INR APTT Sodium Potassium Chloride Carbon Dioxide Anion Gap BUN Creatinine Estim Creat Clear Calc Estimated GFR Glucose Calcium Total Bilirubin AST ALT Alkaline Phosphatase Troponin I 1.110 H* Total Protein Albumin Triglycerides 188 H Cholesterol 192 LDL Cholesterol Direct 103 HDL Direct 41 Lipase ASA Classification/Sedation ASA Classification/Sedation ASA Class: III Emergent: No Risks: Risks, benefits and alternatives explained and patient/family accepted plan for sedation. Patient re-evaluated immediately prior to sedation.
[2025-05-09] MEDS: ASPIRIN 81 MG ENTERIC TABLET PO (08:48)
[2025-05-09] MEDS: ATORVASTATIN 40 MG TABLET PO (08:51)
--- NOTE | 2025-05-09 11:32 | P.PCNCC_ITS ---
Cardiac Cath Procedure Note Date of procedure:: 05/09/25 Performing physician:: Wendy Yeager MD Indication:: NSTEMI Brief clinical history:: 50-year-old male with no significant past medical history presented with off and on chest pain since Thursday. Pain was located in the left chest with radiation to the right arm. Pain relieved with aspirin. Troponin was elevated and continued to rise. EKG showed sinus rhythm with ST depression in anterolateral leads, ST elevation in lead AVR. Repeat EKG showed sinus bradycardia with nonspecific T-wave change. Patient was started heparin drip. He was taken for cardiac catheterization and possible PCI after discussing risks and benefits of the procedure. Procedure Procedure performed:: CATHETERIZATION LABORATORY REPORT Procedure Date: 05/09/2025 Anesthesia: Versed and Fentanyl were ordered and given in my presence at 9:55 a.m., procedure ended at 11:05 a.m.. Supervision of nurse monitored moderate sedation with Versed and Fentanyl was provided for 70 minutes. Fentanyl: 100 mcg Versed: 1 mg Pre-op Diagnosis: NSTEMI Post-op Diagnosis: NSTEMI status post successful IVUS guided PCI to 80% stenosis of proximal LAD with 4.5 mm X 26 mm Medtronic jan [place] post dilated with 5.2 mm X 20 mm noncompliant balloon at high pressures Procedure(s): Coronary angiography IVUS guided PCI to 80% stenosis of proximal LAD with 4.5 mm X 26 mm Medtronic jan [place] post dilated with 5.2 mm X 20 mm noncompliant balloon at high pressures Access Site: Right radial artery Brief History and Clinical Indications: All risks, benefits and alternatives to left heart catheterization with or witho ut percutaneous coronary intervention was discussed at length with the patient. Risk of complications including but not limited to bleeding, infection, arrhythmia, stroke, worsening kidney function, blood loss, groin hematoma, limb loss, emergency coronary artery bypass grafting, and even were discussed with the patient and all questions were answered. The patient understood and wished to proceed. Time out called, patient name, date of , medical record number, allergies, procedure performed, identify Founder & Ceo, patient and staff member concurred with accurate data, procedure carried on. Findings: LEFT HEART CATHETERIZATION FINDINGS: 1. Left main: The left main coronary artery is widely patent without any significant obstructive disease. 2. Left anterior descending: The proximal LAD has 80% stenosis. Mid LAD has 30% stenosis. The LAD gives off 3 large diagonal branches which have mild luminal irregularities without any significant obstructive angiographic disease. 3. Left circumflex: The ostial left circumflex artery has 50% stenosis. The LCX gives off one large marginal branch that is without any significant obstructive angiographic disease. 4. Right coronary artery: The RCA has mild luminal irregularities without any significant obstructive angiographic disease. The RCA is the dominant vessel. 6. Opening AO pressure 146/94 mm Hg and closing AO pressure 123/80 mm Hg Description of Procedure: Informed consent signed and placed in the chart. Patient transferred to catheterization laboratory technician room. Prepped and draped in usual sterile fashion. 2% lidocaine injected subcutaneously in right wrist area. 22-gauge venipuncture catheter used to access the right radial artery with the Seldinger technique. 6-FR slender sheath placed in right radial artery. Nitroglycerin 200mcg, and Heparin 5000U was given intraarterial through the sheath. J wire advanced under fluoroscopy 6 [place] JL 3.5 diagnostic catheter engaged Left Main Coronary Artery. 6 [place] JR4 diagnostic catheter engaged Right Coronary Artery Multiple orthogonal angiogram obtained and reviewed Procedure Description for PCI: Heparin was used for anticoagulation (ACT maintained above 250) Patient loaded with heparin at 70 units/kg. 6 [place] EBU 3.5 guide catheter was used to intubate the left main. A Topher Omni IFR wire was advanced into the distal OM after normalizing in the high aorta. IFR of the ostial left circumflex lesion was performed with the Elizabeth Omni IFR wire. The IFR was 1.03. The Topher Omni wire was then redirected into the distal LAD. 0.014 runthrough coronary wire was passed in to the distal OM. A Zighra Eye capitan grande IVUS catheter was advanced into the mid LAD and a pullback was performed to evaluate lesion characteristics and vessel size. The lesion in the proximal LAD was pre-dilated with a 4.0 mm X 15 mm compliant balloon inflated to high NBA. A 4.5 mm X 26 mm Medtronic jan [place] was successfully deployed into proximal LAD. The stent was post-dilated with a 5.2 mm X 20 mm NC balloon inflated to high NBA. Intracoronary NTG was administered. Follow-up angiograms showed an excellent result. Coronary wires and guide-catheter were removed. Pre-procedure - SHADI 3 flow. Post-procedure - SHADI 3 flow. No angiographic complications identified. Assessment: NSTEMI status post successful IVUS guided PCI to 80% stenosis of proximal LAD with 4.5 mm X 26 mm Medtronic jan [place] post dilated with 5.2 mm X 20 mm noncompliant balloon at high pressures Post Operative Condition: Stable No significant blood loss Disposition: Floor Plan: The patient will be monitored in the recovery area. DAPT for 1 year with ticagrelor 90 mg b.i.d. and aspirin 81 mg daily followed by ASA 81 mg daily indefinitely. Atorvastatin 40 mg daily. TTE. IV fluids normal saline at 100 mL/hour for 1 L. Continue aggressive medical therapy and risk factor modification. Cardiac rehab at 1 month. Follow-up with cardiology in 1 month. Wendy Yeager MD, MS, FACC, [facility] Interventional Cardiology
--- NOTE | 2025-05-09 17:47 | PM.DS ---
DS: Admitting Diagnosis Discharge Date 05/09/2025 Admitting Diagnosis Chest pain DS: Discharge Diagnosis Discharge Diagnosis (1) Acute non-ST elevation myocardial infarction (NSTEMI): Code(s): I21.4 - Non-ST elevation (NSTEMI) myocardial infarction Status: Acute (2) Obesity, Class III, BMI 40-49.9 (morbid obesity): Code(s): E66.813 - Obesity, class 3 Status: Acute (3) Hypertension: Qualifiers: Hypertension type: unspecified Qualified Code(s): I10 - Essential (primary) hypertension Code(s): I10 - Essential (primary) hypertension Status: Acute (4) Coronary artery disease: Code(s): I25.10 - Atherosclerotic heart disease of [place] coronary artery without angina pectoris Status: Acute DS: Summary Hospital Course Hospital Course: 50-year-old male with PMH obesity with BMI 42, essential hypertension, who presents to [place] ER with chest pain. It was exertional. Patient had positive troponins and placed on heparin GTT. Cardiac catheterization completed on 05/09/2025: Brief History and Clinical Indications: All risks, benefits and alternatives to left heart catheterization with or without percutaneous coronary intervention was discussed at length with the patient. Risk of complications including but not limited to bleeding, infection, arrhythmia, stroke, worsening kidney function, blood loss, groin hematoma, limb loss, emergency coronary artery bypass grafting, and even were discussed with the patient and all questions were answered. The patient understood and wished to proceed. Time out called, patient name, date of , medical record number, allergies, procedure performed, identify [employer], patient and staff member concurred with accurate data, procedure carried on. Findings: LEFT HEART CATHETERIZATION FINDINGS: 1. Left main: The left main coronary artery is widely patent without any significant obstructive disease. 2. Left anterior descending: The proximal LAD has 80% stenosis. Mid LAD has 30% stenosis. The LAD gives off 3 large diagonal branches which have mild luminal irregularities without any significant obstructive angiographic disease. 3. Left circumflex: The ostial left circumflex artery has 50% stenosis. The LCX gives off one large marginal branch that is without any significant obstructive angiographic disease. 4. Right coronary artery: The RCA has mild luminal irregularities without any significant obstructive angiographic disease. The RCA is the dominant vessel. 6. Opening AO pressure 146/94 mm Hg and closing AO pressure 123/80 mm Hg Description of Procedure: Informed consent signed and placed in the chart. Patient transferred to label stamper room. Prepped and draped in usual sterile fashion. 2% lidocaine injected subcutaneously in right wrist area. 22-gauge venipuncture catheter used to access the right radial artery with the Seldinger technique. 6-FR slender sheath placed in right radial artery. Nitroglycerin 200mcg, and Heparin 5000U was given intraarterial through the sheath. J wire advanced under fluoroscopy 6 [place] JL 3.5 diagnostic catheter engaged Left Main Coronary Artery. 6 [place] JR4 diagnostic catheter engaged Right Coronary Artery Multiple orthogonal angiogram obtained and reviewed Procedure Description for PCI: Heparin was used for anticoagulation (ACT maintained above 250) Patient loaded with heparin at 70 units/kg. 6 [place] EBU 3.5 guide catheter was used to intubate the left main. A Topher Omni IFR wire was advanced into the distal OM after normalizing in the high aorta. IFR of the ostial left circumflex lesion was performed with the Elizabeth Omni IFR wire. The IFR was 1.03. The Topher Omni wire was then redirected into the distal LAD. 0.014 runthrough coronary wire was passed in to the distal OM. A [employer] ione IVUS catheter was advanced into the mid LAD and a pullback was performed to evaluate lesion characteristics and vessel size. The lesion in the proximal LAD was pre-dilated with a 4.0 mm X 15 mm compliant balloon inflated to high NBA. A 4.5 mm X 26 mm Medtronic jan [place] was successfully deployed into proximal LAD. The stent was post-dilated with a 5.2 mm X 20 mm NC balloon inflated to high NBA. Intracoronary NTG was administered. Follow-up angiograms showed an excellent result. Coronary wires and guide-catheter were removed. Pre-procedure - SHADI 3 flow. Post-procedure - SHADI 3 flow. No angiographic complications identified. Assessment: NSTEMI status post successful IVUS guided PCI to 80% stenosis of proximal LAD with 4.5 mm X 26 mm Medtronic jan [place] post dilated with 5.2 mm X 20 mm noncompliant balloon at high pressures Post Operative Condition: Stable No significant blood loss Disposition: Floor Plan: The patient will be monitored in the recovery area. DAPT for 1 year with ticagrelor 90 mg b.i.d. and aspirin 81 mg daily followed by ASA 81 mg daily indefinitely. Atorvastatin 40 mg daily. TTE. IV fluids normal saline at 100 mL/hour for 1 L. Continue aggressive medical therapy and risk factor modification. Cardiac rehab at 1 month. Follow-up with cardiology in 1 month. ----- Cardiology advised discharge once TTE completed. Can follow-up in the office on the results. Referral made to the [facility] cardiology [place] [facility]. Referral made for cardiac rehab. Advised to follow up PCP within 7 days as well. Lifestyle modifications advised, Education provided. Discussed with the patient at bedside and they were in agreement. Follow-up on HbA1c level as well. All their questions and concerns were answered to satisfaction. Discharge medications include aspirin 81 mg p.o. q.a.m., atorvastatin 40 mg p.o. q.day, amlodipine 10 mg p.o. q.day, Brilinta 90 mg p.o. b.i.d. Patient was full code during the admission. Time Spent with Patient Time attestation: Total time spent providing and/or coordinating discharge services: Time spent: Greater than 30 minutes Exam Const: General: comfortable and no acute distress HENMT: Mouth: Yes moist mucous membranes Eyes: Pupils: Equal, round and reactive pupils present Neck: Neck: supple Resp: Effort & Inspection: normal respiratory effort Auscultation: clear to auscultation bilaterally Cardio: Rate: regular rate Rhythm: regular rhythm Heart sounds: no murmurs GI: GI Palp: Yes Soft to palpation Neuro: Motor exam (neuro): 5/5 motor strength present throughout Extrem: General: no edema DS: Data Data Completed and Pending Labs on day of discharge: Labs from last 24 hours 05/09/25 05/09/25 05/09/25 11:06 10:35 06:36 WBC RBC Hgb Hct MCV MCH MCHC RDW Plt Count MPV Immature Gran % (Auto) Neut % (Auto) Lymph % (Auto) [place] % (Auto) Eos % (Auto) Baso % (Auto) Lymph # (Auto) [place] # (Auto) Eos # (Auto) Baso # (Auto) Abs Immat Gran (auto) Absolute Neuts (auto) Absolute Nucleated RBC Nucleated RBC % PT INR APTT Activ Coag Time Kaolin 279 H 245 H Sodium Potassium Chloride Carbon Dioxide Anion Gap BUN Creatinine Estim Creat Clear Calc Estimated GFR Glucose Calcium Total Bilirubin AST ALT Alkaline Phosphatase Troponin I 1.110 H* Total Protein Albumin Triglycerides 188 H Cholesterol 192 LDL Cholesterol Direct 103 HDL Direct 41 Lipase 05/09/25 05/09/25 05/08/25 06:36 02:43 23:02 WBC 8.2 12.7 H RBC 5.20 5.85 Hgb 15.2 16.8 Hct 44.2 48.4 MCV 85.0 82.7 MCH 29.2 28.7 MCHC 34.4 34.7 RDW 13.1 12.9 Plt Count 207 270 MPV 10.5 H 10.3 Immature Gran % (Auto) 0.5 0.5 Neut % (Auto) 61.8 68.1 Lymph % (Auto) 25.8 19.7 [place] % (Auto) 8.8 H 8.8 H Eos % (Auto) 2.2 2.0 Baso % (Auto) 0.9 0.9 Lymph # (Auto) 2.11 2.50 [place] # (Auto) 0.7 H 1.1 H Eos # (Auto) 0.2 0.3 Baso # (Auto) 0.1 0.1 Abs Immat Gran (auto) 0.04 H 0.06 H Absolute Neuts (auto) 5.1 8.6 H Absolute Nucleated RBC 0.000 0.000 Nucleated RBC % 0.0 0.0 PT 13.8 INR 1.1 APTT 27.2 27.8 Activ Coag Time Kaolin Sodium 137 Potassium 3.5 Chloride 102 Carbon Dioxide 25 Anion Gap 10 BUN 11 Creatinine 0.93 Estim Creat Clear Calc 133 Estimated GFR > 60 Glucose 124 H Calcium 9.0 Total Bilirubin 0.5 AST 40 ALT 36 Alkaline Phosphatase 100 Troponin I Cancelled 0.972 H* D 0.676 H* Total Protein 8.0 Albumin 4.6 Triglycerides Cholesterol LDL Cholesterol Direct HDL Direct Lipase 163 Discharge Plan Discharge Attending physician on discharge: Soh Velasco Consulting providers: Wendy Yeager Discharging Clinician: Sho Velasco Patient Disposition: Home Activity: december shower Diet: heart healthy and low fat Patient Instructions: Antibiotic Form, Heparin/Dextrose Premix (Injection), Heart Attack (GEN), Heart Healthy Diet (GEN), Hypertension (GEN) Patient Language: Sudanese Stand Alone Forms: General Discharge Information Follow-up/Referrals: Mima Jorgensen APN-C [Advanced Practice Nurse, Cardiology] - 05/17/25 PHYSICIAN,AVIATION TECHNICAL SYSTEMS SPECIALIST [Primary Care Provider, Internal Medicine] - 05/17/25 Referral Note: follow up on hospital stay. NSTEMI, cardiac stent placed Discharge Medications: New atorvastatin 40 mg Tablet 40 mg PO DAILY Qty: 30 0RF aspirin 81 mg Tablet,Delayed Release (Dr/Ec) 81 mg PO QAM Qty: 30 0RF amlodipine [Norvasc] 5 mg Tablet 10 mg PO DAILY Qty: 60 0RF ticagrelor [Brilinta] 90 mg tablet 90 mg PO Q12H Qty: 60 1RF Other Ambulatory Orders: Cardiac Rehabilitation Referral (Routine) Timeframe: 1 Day Location: Determined by Patient Ordered By: Sho Velasco Date of admission: 05/09/25 01:09 Primary Care Provider: PHYSICIAN,AVIATION TECHNICAL SYSTEMS SPECIALIST Admitting Provider: Shanell Nicholas Attending physician on admission: Shanell Nicholas Condition: Stable Hospitalist MIPS Heart Failure (Exclusion) Patient has history of Heart Transplant or Left Ventricular Assistive Device?: No IF YES, STOP HERE Heart Failure (Qualifier) Patient has current or prior documentation of LVEF less than or equal to 40%, or mod/servere depressed LVSF?: No IF NO, STOP HERE
[2025-05-09 18:04] LABS: Hemoglobin A1C 5.5 % (<5.7)
== END 2025-05-09 19:00 | disposition home or self-care (01) | DRG 174 ==
LOC: ANHED 05-09 01:31 → ANHIMU 05-09 04:55
PROVIDERS: Internal Medicine Interventional Cardiology; Admitting Provider Internal Medicine; Emergency Provider Student in an Organized Health Care Education/Training Program; Visit Provider General Practice
PROC: 027034Z Dilation of Coronary Artery, One Artery with Drug-eluting Intraluminal Device, Percutaneous Approach (ICD-10-PCS; CPT 93454; principal; 2025-05-09 09:30)
PROC: 027034Z Dilation of Coronary Artery, One Artery with Drug-eluting Intraluminal Device, Percutaneous Approach (ICD-10-PCS; 2025-05-09 09:30)
PROC: 027034Z Dilation of Coronary Artery, One Artery with Drug-eluting Intraluminal Device, Percutaneous Approach (ICD-10-PCS; 2025-05-09 09:30)
PROC: 4A033BC Measurement of Arterial Pressure, Coronary, Percutaneous Approach (ICD-10-PCS; CPT 93571; 2025-05-09 09:30)
DX: I21.4 Non-ST elevation (NSTEMI) myocardial infarction (principal); I10 Essential (primary) hypertension; I16.0 Hypertensive urgency; E66.813 Obesity, class 3; Z68.41 Body mass index [BMI] 40.0-44.9, adult
CPT/HCPCS: 36415; 71046; 80053; 80061; 83036; 83690; 84484; 85025; 85610; 85730; 92978; 93005; 93306; 93454; 93571; 96365; 99285; A9270; C1725; C1753; C1769; C1874; C1887; C1894; C9600; J1644; J2003; J2250; J2305; J3010; J7040